=== PATIENT | female | born 1960 | race Caucasian/White ===

== ENCOUNTER → 2017-04-08 | Outpatient (CLI) | payer OTHER, MEDICAID ==
[2016-07-07 18:39] VITALS: BP 129/85
[2017-04-08 17:19] LABS: BASOPHILS # (AUTO) 0.1 X10^3/uL (0.0-0.1); BASOPHILS % (AUTO) 1.3 % (0.2-1.0); EOSINOPHILS # (AUTO) 0.3 x10^3/uL (0.0-0.2); EOSINOPHILS % (AUTO) 3.4 % (0.9-2.9); HEMATOCRIT 41.5 % (36.0-47.0); HEMOGLOBIN 13.8 g/dL (12.0-16.0); MEAN CORPUSCULAR HEMOGLOBIN 26.8 pg (27.0-34.0); MEAN CORPUSCULAR HGB CONC 33.3 g/dL (33.0-35.0); MEAN CORPUSCULAR VOLUME 80.5 fL (80.0-100.0); MEAN PLATELET VOLUME 7.7 fL (7.4-11.0); MONOCYTES # (AUTO) 0.5 x10^3/uL (0.3-0.8); MONOCYTES % (AUTO) 5.9 % (0.0-13.0); NEUTROPHILS # (AUTO) 5.1 x10^3/uL (2.2-4.8); NEUTROPHILS % (AUTO) 64.4 % (42.0-75.0); PLATELET COUNT 558 X10^3/uL (150.0-450.0); RED BLOOD COUNT 5.15 X10^6/uL (3.5-5.4); WHITE BLOOD COUNT 7.9 X10^3/uL (3.6-10.0)
[2017-04-08 17:29] LABS: ALBUMIN 4.1 g/dL (3.4-5.0); BLOOD UREA NITROGEN 47 mg/dL (7-18); CALCIUM 10.1 mg/dL (8.5-10.1); CARBON DIOXIDE 19.9 mmol/L (21-32); CHLORIDE 100 mmol/L (98-107); CREATININE 2.45 mg/dL (0.55-1.02); SODIUM 136 mmol/L (136-145); eGFR BLACK RACES 26 (>60); eGFR NON BLACK RACES 22 (>60)
[2017-04-08 18:23] LABS: TOTAL PROTEIN,URINE 42.9 mg/dl (0-11.9)
[2017-04-08 19:01] LABS: CREATININE,URINE 281.32 mg/dL (30-125)
[2017-04-12 15:57] LABS: KAPPA LIGHT CHAINS 4.56 mg/dL (0.33-1.94); LAMBDA LIGHT CHAIN 3.11 mg/dL (0.57-2.63)
[2017-04-13 11:04] LABS: ANTI-NUCLEAR ANTIBODY TEST None Detected (None Detected); KAPPA/LAMBDA RATIO 1.47 (0.26-1.65)
== END ==
LOC: LAB 16:30
PROVIDERS: ATTEND Internal Medicine
DX: I12.9 Hypertensive chronic kidney disease with stage 1 through stage 4 chronic kidney disease, or unspecified chronic kidney disease (principal); N18.3 Chronic kidney disease, stage 3 (moderate); N17.8 Other acute kidney failure
CPT/HCPCS: 36415; 80069; 82570; 83883; 84157; 85025; 86308

== ENCOUNTER → 2017-04-29 | Outpatient (CLI) | payer OTHER, MEDICAID ==
[2016-07-07 18:39] VITALS: BP 129/85
[2017-04-29 15:21] LABS: BASOPHILS # (AUTO) 0.1 X10^3/uL (0.0-0.1); EOSINOPHILS # (AUTO) 0.2 x10^3/uL (0.0-0.2); EOSINOPHILS % (AUTO) 3.4 % (0.9-2.9); HEMATOCRIT 39.2 % (36.0-47.0); HEMOGLOBIN 12.7 g/dL (12.0-16.0); LYMPHOCYTES # (AUTO) 1.6 X10^3/uL (1.3-2.9); MEAN CORPUSCULAR HEMOGLOBIN 26.5 pg (27.0-34.0); MEAN CORPUSCULAR HGB CONC 32.4 g/dL (33.0-35.0); MEAN CORPUSCULAR VOLUME 81.9 fL (80.0-100.0); MEAN PLATELET VOLUME 8.2 fL (7.4-11.0); MONOCYTES # (AUTO) 0.4 x10^3/uL (0.3-0.8); MONOCYTES % (AUTO) 6.7 % (0.0-13.0); NEUTROPHILS # (AUTO) 3.8 x10^3/uL (2.2-4.8); NEUTROPHILS % (AUTO) 61.9 % (42.0-75.0); PLATELET COUNT 374 X10^3/uL (150.0-450.0); RED BLOOD COUNT 4.79 X10^6/uL (3.5-5.4); RED CELL DISTRIBUTION WIDTH 16.8 % (11.6-16.5); WHITE BLOOD COUNT 6.1 X10^3/uL (3.6-10.0)
[2017-04-29 15:33] LABS: BLOOD UREA NITROGEN 30 mg/dL (7-18); CALCIUM 9.4 mg/dL (8.5-10.1); CARBON DIOXIDE 19.6 mmol/L (21-32); CHLORIDE 104 mmol/L (98-107); CREATININE 1.29 mg/dL (0.55-1.02); SODIUM 137 mmol/L (136-145); URIC ACID 3.8 mg/dL (2.6-6.0); eGFR BLACK RACES 55 (>60); eGFR NON BLACK RACES 46 (>60)
== END ==
LOC: LAB 14:46
PROVIDERS: ATTEND Internal Medicine
DX: N18.3 Chronic kidney disease, stage 3 (moderate) (principal); N17.8 Other acute kidney failure
CPT/HCPCS: 36415; 80069; 84550; 85025

== ENCOUNTER → 2017-07-01 | Outpatient (CLI) | payer OTHER, MEDICAID ==
[2016-07-07 18:39] VITALS: BP 129/85
[2017-07-01 18:15] LABS: BASOPHILS # (AUTO) 0.1 X10^3/uL (0.0-0.1); BASOPHILS % (AUTO) 1.1 % (0.2-1.0); EOSINOPHILS # (AUTO) 0.2 x10^3/uL (0.0-0.2); HEMATOCRIT 41.1 % (36.0-47.0); HEMOGLOBIN 13.5 g/dL (12.0-16.0); LYMPHOCYTES % (AUTO) 25.1 % (21.0-51.0); MEAN CORPUSCULAR HEMOGLOBIN 26.9 pg (27.0-34.0); MEAN CORPUSCULAR HGB CONC 32.9 g/dL (33.0-35.0); MEAN PLATELET VOLUME 8.1 fL (7.4-11.0); MONOCYTES # (AUTO) 0.5 x10^3/uL (0.3-0.8); NEUTROPHILS # (AUTO) 5.2 x10^3/uL (2.2-4.8); NEUTROPHILS % (AUTO) 64.8 % (42.0-75.0); PLATELET COUNT 440 X10^3/uL (150.0-450.0); RED BLOOD COUNT 5.01 X10^6/uL (3.5-5.4); RED CELL DISTRIBUTION WIDTH 16.2 % (11.6-16.5); WHITE BLOOD COUNT 8.1 X10^3/uL (3.6-10.0)
[2017-07-01 18:22] LABS: BLOOD UREA NITROGEN 29 mg/dL (7-18); CALCIUM 9.6 mg/dL (8.5-10.1); CARBON DIOXIDE 23.4 mmol/L (21-32); CHLORIDE 101 mmol/L (98-107); CREATININE 1.63 mg/dL (0.55-1.02); PHOSPHORUS 4.2 mg/dL (2.6-4.7); SODIUM 134 mmol/L (136-145); eGFR BLACK RACES 42 (>60); eGFR NON BLACK RACES 35 (>60)
[2017-07-01 22:04] LABS: CREATININE,URINE 173.39 mg/dL (29-226); TOTAL PROTEIN,URINE 18.8 mg/dl (0-11.9)
== END ==
LOC: LAB 17:45
PROVIDERS: ATTEND Internal Medicine
DX: N18.3 Chronic kidney disease, stage 3 (moderate) (principal); N17.9 Acute kidney failure, unspecified
CPT/HCPCS: 36415; 80069; 82570; 84157; 84550; 85025

== ENCOUNTER → 2017-08-28 | Outpatient (CLI) | payer OTHER, MEDICAID ==
[2016-07-07 18:39] VITALS: BP 129/85
[2017-08-28 09:24] LABS: BASOPHILS # (AUTO) 0.1 X10^3/uL (0.0-0.1); EOSINOPHILS # (AUTO) 0.2 x10^3/uL (0.0-0.2); EOSINOPHILS % (AUTO) 2.9 % (0.9-2.9); HEMATOCRIT 38.3 % (36.0-47.0); HEMOGLOBIN 12.7 g/dL (12.0-16.0); LYMPHOCYTES # (AUTO) 1.8 X10^3/uL (1.3-2.9); LYMPHOCYTES % (AUTO) 23.2 % (21.0-51.0); MEAN CORPUSCULAR HEMOGLOBIN 26.9 pg (27.0-34.0); MEAN CORPUSCULAR HGB CONC 33.1 g/dL (33.0-35.0); MEAN CORPUSCULAR VOLUME 81.4 fL (80.0-100.0); MONOCYTES # (AUTO) 0.6 x10^3/uL (0.3-0.8); MONOCYTES % (AUTO) 7.6 % (0.0-13.0); NEUTROPHILS # (AUTO) 5.1 x10^3/uL (2.2-4.8); NEUTROPHILS % (AUTO) 65.3 % (42.0-75.0); PLATELET COUNT 516 X10^3/uL (150.0-450.0); RED BLOOD COUNT 4.71 X10^6/uL (3.5-5.4); RED CELL DISTRIBUTION WIDTH 16.8 % (11.6-16.5); WHITE BLOOD COUNT 7.8 X10^3/uL (3.6-10.0)
[2017-08-28 09:41] LABS: ALBUMIN 4.1 g/dL (3.4-5.0); BLOOD UREA NITROGEN 36 mg/dL (7-18); CALCIUM 9.1 mg/dL (8.5-10.1); CARBON DIOXIDE 20.2 mmol/L (21-32); CHLORIDE 102 mmol/L (98-107); CHOL/HDL RATIO 3.5 (0.0-5.0); CHOLESTEROL 168 mg/dL (0-200); CREATININE 1.34 mg/dL (0.55-1.02); HDL CHOLESTEROL 48 mg/dL (40-60); PHOSPHORUS 4.1 mg/dL (2.6-4.7); SODIUM 137 mmol/L (136-145); TRIGLYCERIDES 97 mg/dL (0-150); URIC ACID 4.9 mg/dL (2.6-6.0); eGFR BLACK RACES 53 (>60); eGFR NON BLACK RACES 43 (>60)
== END ==
LOC: LAB 08:56
PROVIDERS: ATTEND Internal Medicine
DX: I12.9 Hypertensive chronic kidney disease with stage 1 through stage 4 chronic kidney disease, or unspecified chronic kidney disease (principal); N18.3 Chronic kidney disease, stage 3 (moderate)
CPT/HCPCS: 36415; 80061; 80069; 84550; 85025